=== PATIENT | female | born 1955 | race Caucasian/White ===

== ENCOUNTER 2021-08-11 22:27 | Inpatient (IN) | payer MEDICARE, OTHER ==
[~2021-08-11] VITALS: Ht 165.1 cm; Wt 80.7 kg
[2021-08-11 23:26] LABS: HEMOGLOBIN 12.7 gm/dl (12.3-15.3); RED BLOOD COUNT 4.81 M/UL (4.00-5.10); WHITE BLOOD COUNT 12.7 K/UL (4.5-11.0)
[2021-08-11 23:58] LABS: BUN/CREATININE RATIO 24 (0-10)
[2021-08-12] MEDS ORDERED: TRIAMTERENE-HC1 EAC3 PO (11:58)
== END 2021-08-13 05:07 | disposition short-term general hospital (02) | DRG 251 ==
LOC: ER1 22:27 → CDU 08-12 02:15 → PROG CARE 08-12 02:15
PROVIDERS: Physician Assistant; ADMIT Internal Medicine
PROC: 4A023N7 Measurement of Cardiac Sampling and Pressure, Left Heart, Percutaneous Approach (ICD-10-PCS; principal; 2021-08-12)
PROC: 02703ZZ Dilation of Coronary Artery, One Artery, Percutaneous Approach (ICD-10-PCS; 2021-08-12)
PROC: B2111ZZ Fluoroscopy of Multiple Coronary Arteries using Low Osmolar Contrast (ICD-10-PCS; 2021-08-12)
PROC: B24BZZZ Ultrasonography of Heart with Aorta (ICD-10-PCS; 2021-08-12)
DX: I21.4 Non-ST elevation (NSTEMI) myocardial infarction (principal); I10 Essential (primary) hypertension; Z20.822 Contact with and (suspected) exposure to COVID-19; J30.9 Allergic rhinitis, unspecified; E87.6 Hypokalemia; I44.7 Left bundle-branch block, unspecified; I20.9 Angina pectoris, unspecified; I08.1 Rheumatic disorders of both mitral and tricuspid valves; Z86.718 Personal history of other venous thrombosis and embolism; Z79.01 Long term (current) use of anticoagulants; Z87.891 Personal history of nicotine dependence; Z88.8 Allergy status to other drugs, medicaments and biological substances; Z90.710 Acquired absence of both cervix and uterus; Z98.890 Other specified postprocedural states; Z82.3 Family history of stroke; Z82.49 Family history of ischemic heart disease and other diseases of the circulatory system; Z88.1 Allergy status to other antibiotic agents
CPT/HCPCS: ECHO; 36415; 71045; 80053; 80061; 82550; 82553; 84132; 84484; 85025; 85347; 85379; 85730; 92920; 92978; 93005; 93306; 96374; 96375; 99152; 99153; 99285; C1725; C1753; C1769; C1874; C1887; C1894; J0461; J1644; J2250; J3010; J7040; Q9967

== ENCOUNTER 2021-10-13 19:02 | Emergency (ER) | payer MEDICARE, OTHER ==
[~2021-10-13 19:02] MED LIST: TRIAMTERENE-HC1 EAC3 PO
[2021-10-13 20:07] LABS: HEMOGLOBIN 12.1 gm/dl (12.3-15.3); RED BLOOD COUNT 4.63 M/UL (4.00-5.10); WHITE BLOOD COUNT 11.7 K/UL (4.5-11.0)
[2021-10-13 20:28] LABS: BUN/CREATININE RATIO 26 (0-10)
[2021-10-13] MEDS ORDERED: VOLTAREN ARTHRI20 GM TP (21:44)
== END 2021-10-13 21:55 | disposition home or self-care (01) ==
LOC: ER1 19:02
PROVIDERS: Physician Assistant Medical
DX: M79.604 Pain in right leg (principal); I11.9 Hypertensive heart disease without heart failure; Z88.6 Allergy status to analgesic agent; Z88.0 Allergy status to penicillin; Z88.1 Allergy status to other antibiotic agents
CPT/HCPCS: 73564; 80053; 85025; 85379; 99283